=== PATIENT | female | born 1990 | race Caucasian/White ===

== ENCOUNTER 2020-05-13 15:15 | Emergency (ER) | payer SELFPAY ==
[~2020-05-13] VITALS: Ht 172.7 cm; Wt 108.0 kg
[2020-05-13 15:48] VITALS: Ht 172.7 cm; Wt 108.0 kg
[2020-05-13 16:38] VITALS: BP 116/66
== END 2020-05-13 16:38 | disposition home or self-care (01) ==
LOC: ED 15:15
DX: R21 Rash and other nonspecific skin eruption (principal); R59.0 Localized enlarged lymph nodes; J45.909 Unspecified asthma, uncomplicated